=== PATIENT | female | born 1985 | race Caucasian/White ===

== ENCOUNTER 2022-01-09 08:22 | Outpatient (REF) | payer OTHER, SELFPAY ==
--- NOTE | ~2022-01-09 | XR_ITS ---
EXAMINATION: XR HAND, RIGHT CLINICAL INFORMATION: M79.641 - Pain in right hand COMPARISON: None TECHNIQUE: PA, lateral, and oblique views of the right hand. FINDINGS: No periarticular demineralization, destructive process, fracture, or dislocation. Ulnar variance is neutral. Pronator quadratus fat pad normal. There is no joint narrowing or erosive change or chondrocalcinosis. The carpus, MCP, and interphalangeal joints are unremarkable. XR/XR hand RT min 3V IMPRESSION: -No fracture or destructive process. -No joint narrowing or erosive changes.
== END 2022-01-09 08:23 | disposition home or self-care (01) ==
LOC: HO.HOSX 08:22
PROVIDERS: Visit Provider Orthopaedic Surgery
DX: M79.641 Pain in right hand (principal); R20.0 Anesthesia of skin; R20.2 Paresthesia of skin; M77.8 Other enthesopathies, not elsewhere classified
CPT/HCPCS: 20550; 73130; 99202; J1100

== ENCOUNTER → 2022-02-27 12:52 | Outpatient (BNVA) | payer OTHER, SELFPAY | PROVIDERS: PCP Internal Medicine; Visit Provider Orthopaedic Surgery | DX: R20.0 Anesthesia of skin (principal); R20.2 Paresthesia of skin; M77.8 Other enthesopathies, not elsewhere classified | CPT/HCPCS: 99212 ==

== ENCOUNTER 2023-02-25 19:23 | Outpatient (REF) | payer OTHER, SELFPAY ==
[2023-03-04 06:34] LABS: HPV mRNA E6/E7 rflx Not Detected (Not Detected)
== END 2023-02-25 19:24 | disposition home or self-care (01) ==
LOC: HO.HHCLNP 19:23
PROVIDERS: Visit Provider Advanced Practice Midwife
DX: Z00.00 Encounter for general adult medical examination without abnormal findings (principal); Z12.4 Encounter for screening for malignant neoplasm of cervix
CPT/HCPCS: 87624; 88142

== ENCOUNTER 2023-05-15 11:42 | Outpatient (REF) | payer OTHER, SELFPAY ==
[2023-05-15 14:16] LABS: MANUAL DIFF FLAG NO
[2023-05-15 14:19] LABS: Basophils Absolute Auto 0.1 X10*3/uL (0.0-0.2); Basophils Percent Auto 0.8 % (0-2); Eosinophils Absolute Auto 0.3 X10*3/uL (0.0-0.4); Eosinophils Percent Auto 3.2 % (0-4); Hematocrit 39.8 % (37.0-47.0); Hemoglobin 12.7 g/dl (12.0-16.0); Imm Gran Abs Auto 0.02 X10*3/uL (0.00-0.03); Imm Gran Pct Auto 0.2 % (0.0-0.4); Lymphocytes Absolute Auto 4.5 X10*3/uL (1.2-4.9); Lymphocytes Percent Auto 43.3 % (20-40); Mean Corpuscular HGB Conc 31.9 g/dl (31.0-35.0); Mean Corpuscular Hemoglobin 30.9 pg (27.0-33.0); Mean Corpuscular Volume 96.8 fL (80.0-98.0); Mean Platelet Volume 12.2 fL (9.4-12.3); Monocytes Absolute Auto 0.6 X10*3/uL (0.1-1.2); Monocytes Percent Auto 5.2 % (2-11); Neutrophils Percent Auto 47.3 % (45-73); Platelet Count 231 X10*3/uL (160-400); Red Blood Count 4.11 X10*6/uL (4.20-5.50); Red Cell Distribution Width 12.2 % (11.0-16.0); White Blood Count 10.5 X10*3/uL (4.8-10.8)
[2023-05-15 15:13] LABS: Anion Gap 12 (12-20)
[2023-05-15 15:16] LABS: Blood Urea Nitrogen 7 mg/dL (9-16); Calcium 9.3 mg/dL (8.4-10.2); Carbon Dioxide 23 mmol/L (22-29); Chloride 108 mmol/L (96-108); Estimated Glomerular Filt Rate > 60; Glucose Random 77 mg/dL (60-115); Potassium 3.8 mmol/L (3.3-5.1); Sodium 139 mmol/L (135-145)
== END 2023-05-15 11:43 | disposition home or self-care (01) ==
LOC: HO.CHCLDS 11:42
PROVIDERS: Visit Provider Internal Medicine
DX: N87.9 Dysplasia of cervix uteri, unspecified (principal); R63.6 Underweight
CPT/HCPCS: 36415; 80048; 84443; 85025